=== PATIENT | male | born 1985 | race Two or more races ===

== ENCOUNTER 2019-01-03 04:52 | Inpatient (IN) | payer MEDICAID ==
[~2019-01-03] VITALS: Ht 175.3 cm; Wt 90.7 kg
[2019-01-03] MEDS ORDERED: LORAZEPAM INJ 2 MG/ML VIAL IM ONE (05:00)
--- NOTE | 2019-01-03 05:00 | NUR ---
BIBA FOUND ON THE STREET WANDERING AROUND. PT REFUSED TO ANSWER TO ANY QUESTION INCLUDING HIS NAME. ANXIOUS AT TIMES. PLACED ON A MONITOR,
[2019-01-03] MEDS ORDERED: LORAZEPAM INJ 2 MG/ML VIAL ONE ×3 (05:03→09:41)
--- NOTE | 2019-01-03 05:42 | NUR ---
RE ATTEMPTED TO ASSESS THE PT AND GET SOME INFORMATION. PT ADMITTED ON DRINKING ALCOHOL. DENIED SI OR HI. DENIED DRUG USE OR ANY PAIN OR DISCOMFORT. UNABLE TO STAY STILL IN BED AND STILL REFUSING TO GIVE HIS NAME. REMAINED IN CLOSE MONITORING .
[2019-01-03] MEDS ORDERED: diphenhydrAMINE HCL 50 MG/ML VIAL IM ONE (07:00)
[2019-01-03] MEDS ORDERED: OLANZAPINE 10 MG VIAL IM ONE ×2 (07:00→07:06)
[2019-01-03] MEDS ORDERED: diphenhydrAMINE HCL 50 MG/ML VIAL ONE (07:05)
[2019-01-03] MEDS ORDERED: IV NS 0.9% 1,000 ML BAG IV ONE ×2 (07:30→09:00)
--- NOTE | 2019-01-03 07:38 | NUR ---
GOWNED,ALL BELONGINGS/CONTRABAND REMOVED FROM HER ELYSE, WANDED
--- NOTE | 2019-01-03 07:41 | NUR ---
urine collected and sent to lab
[2019-01-03 07:44] LABS: BASOPHILS % (AUTO) 0.2 % (0.0-2.0); HEMATOCRIT 45 % (39-51); HEMOGLOBIN 14.9 g/dL (13.5-17.5); LYMPHOCYTES # (AUTO) 3.6 /CMM (0.8-4.8); LYMPHOCYTES % (AUTO) 20.6 % (20.0-44.0); MEAN CORPUSCULAR HGB CONC 33 g/dl (31.0-36.0); MEAN CORPUSCULAR VOLUME 89 fL (80-96); MONOCYTES # (AUTO) 2.3 /CMM (0.1-1.30); MONOCYTES % (AUTO) 13.6 % (2.0-12.0); NEUTROPHILS # (AUTO) 11.3 /CMM (1.8-8.9); NEUTROPHILS % (AUTO) 65.6 % (43.0-81.0); PLATELET COUNT (AUTO) 290 /CMM (150-450); RED BLOOD CELL COUNT(AUTO) 5.07 MIL/uL (4.5-6.0); WHITE BLOOD COUNT (AUTO) 17.2 K/uL (4.3-11.0)
[2019-01-03 07:49] LABS: APPEARANCE,URINE CLEAR (CLEAR); BILIRUBIN,URINE 2+ (NEGATIVE); BLOOD, URINE NEGATIVE Ery/uL (NEGATIVE); COLOR,URINE DARK YELLO (YELLOW); KETONES,URINE 1+ (NEGATIVE); LEUKOCYTE ESTERASE ,URINE NEGATIVE (NEGATIVE); NITRITE, URINE POSITIVE (NEGATIVE); PH,URINE 5.5 (5.0-8.0); PROTEIN,URINE 1+ mg/dl (NEGATIVE); UGLUCOSE TRACE mg/dL (NEGATIVE)
[2019-01-03 07:58] LABS: CALCIUM, SERUM 9.7 mg/dL (8.5-10.1); CARBON DIOXIDE 24 mmol/L (21-32); CHLORIDE 104 mmol/L (98-107); CREATININE 2.5 mg/dL (0.6-1.3); GLUCOSE 100 mg/dL (74-106); POTASSIUM 4.2 mmol/L (3.5-5.1); SODIUM SERUM 147 mmol/L (136-145); UREA NITROGEN, BLOOD 39 mg/dL (7-18)
[2019-01-03 08:01] LABS: ALANINE AMINOTRANSFERASE 695 U/L (12-78); ALBUMIN 4.6 g/dL (3.4-5.0); ALKALINE PHOSPHATASE 102 U/L (46-116); ASPARTATE AMINOTRANSFERASE 289 U/L (15-37); BILIRUBIN,DIRECT 0.9 mg/dL (0.0-0.2); BILIRUBIN,TOTAL 2.1 mg/dL (0.2-1.0); TOTAL PROTEIN, SERUM 8.8 g/dL (6.4-8.2)
[2019-01-03 08:02] LABS: ACETAMINOPHEN 0 ug/ml (10-30); ALCOHOL, BLOOD < 3 mg/dL (0-0); SALICYLATE 1.7 mg/dL (2.8-20.0)
[2019-01-03 08:14] LABS: RBC,URINE 0-2 /HPF (0-2); SQUAMOUS EPITHELIAL CELL,UR Few /HPF (None Seen); WBC,URINE 0-2 /HPF (0-3)
[2019-01-03 08:15] LABS: BACTERIA,URINE Moderate /HPF (None Seen)
[2019-01-03] MEDS ORDERED: LORAZEPAM INJ 2 MG/ML VIAL IV ONE ×2 (09:30→10:00)
--- NOTE | 2019-01-03 09:51 | NUR ---
patient still agitated, vital signs recorded. MD ordered another dose of Ativan and administered. Will continue to monitor accordingly.
--- NOTE | 2019-01-03 09:58 | NUR ---
ABOUT EKG... MEDS GIVEN WAITING FOR PT TO RELAX AND NOT MOVE SO MUCH.
--- NOTE | 2019-01-03 10:34 | NUR ---
PANEL ON-CALL PAGED
--- NOTE | 2019-01-03 10:54 | NUR ---
report given to Efrain GILMORE for wander.
[2019-01-03] MEDS ORDERED: ZOLPIDEM TARTRATE 5 MG TABLET PO PRN (11:30)
[2019-01-03] MEDS ORDERED: MAGNESIUM HYDROXIDE 30 ML UDC PO PRN (11:30)
[2019-01-03] MEDS ORDERED: MORPHINE SULFATE INJ 2 MG/ML DISP.SYRIN IV PRN (11:30)
[2019-01-03] MEDS ORDERED: MAG HYDROX/AL HYDROX/SIMETH 30 ML UDC PO PRN (11:30)
[2019-01-03] MEDS ORDERED: LORAZEPAM INJ 2 MG/ML VIAL IV PRN (11:30)
[2019-01-03] MEDS ORDERED: ONDANSETRON HCL/PF 4 MG/2 ML VIAL IVP PRN (11:30)
[2019-01-03] MEDS ORDERED: ACETAMINOPHEN 325 MG TABLET PO PRN (11:30)
[2019-01-03] MEDS ORDERED: Z GUARD REMEDY 2 OZ OINT TP PRN (11:30)
[2019-01-03] MEDS ORDERED: HYDROCODONE/APAP 5/325MG 1 EACH TABLET PO PRN (11:30)
[2019-01-03 12:00] VITALS: BP 113/46
--- NOTE | 2019-01-03 12:00 | NUR ---
RN NOTES RECEIVED REPORT FROM KEELY REGARDING DORETHA LIPSCOMB FOR BORIS.
--- NOTE | 2019-01-03 12:05 | NUR ---
patient transferred to [facility] going to room 314, in no apparent distress noted, accompanied by RN, EMT, and sitter.
--- NOTE | 2019-01-03 12:20 | NUR ---
RN ADMITTING NOTES ADMITTED A 29 Y/O MALE TO UNIT VIA GURNEY AT 12:10 ACCOMPANIED BY 2 HOSPITAL STAFF. PATIENT MENTAL STATUS IS ALTERED, VERY LETHARGIC AND SEDATED. UPON REACH PATIENT BECOMES VERY AGGRESSIVE. PATIENT REFUSED SKIN ASSESSMENT. DR. HORVATH MADE AWARE. PATIENT WITH IV ACCESS ON RA #18, SL. ON ROOM AIR AND TOLERATING WELL. SAFETY MEASURES KEPT IN PLACE, BED IN LOW, LOCKED POSITION WITH SIDE RAILS UP X3. SITTER ON BEDSIDE. CALL LIGHT WITHIN EASY REACH. WILL CONTINUE TO MONITOR.
[2019-01-03] MEDS: IV NS 0.9% 1,000 ML IV PRN ×2 (13:01→18:36)
[2019-01-03 16:00] VITALS: BP 103/57
--- NOTE | 2019-01-03 19:19 | NUR ---
CAREER REPRESENTATIVE CLOSING NOTES PATIENT AWAKE AND RESTING IN BED AT MODERATE HIGH BACK REST POSITION. A/O X 2. ON RA, TOLERATING WELL. IVF ON RA #18 WITH NS INFUSING @ 150ML/HR. PATENT AND INTACT. KEPT SAFETY MEASURES IN PLACE, BED IN LOW LOCKED POSITION, SIDE RAILS UP X3. SITTER AT BEDSIDE. CALL LIGHT WITHIN EASY REACH. ENDORSED TO WEAPONS SYSTEM INSTRUMENT MECHANIC NURSE FOR BORIS.
--- NOTE | 2019-01-03 19:40 | NUR ---
FIELD STAFF OPENING NOTES RECEIVED PT IN BED, AWAKE ALERT ORIENTEDX1, APPEARS DROWSY, BREATHING EVEN AND UNLABORED ON ROOM AIR. SR IN THE 90S, RA #18G WITH NS 150ML/HR. SITTER AT BED SIDE, BED IN LOWEST LOCKED POSITION, CALL LIGHT WITHIN REACH AT ALL TIMES, WILL CONTINUE TO MONITOR FREQUENTLY
[2019-01-04] VITALS: BP 101/70
[2019-01-04 04:00] VITALS: BP 110/62
[2019-01-04] MEDS: IV NS 0.9% 1,000 ML IV PRN (05:51)
--- NOTE | 2019-01-04 06:12 | NUR ---
COMPUTATIONAL MATHEMATICIAN CLOSING NOTES PT REMAINS IN BED,SLEEPING, BREATHING EVEN AND UNLABORED ON ROOM AIR. EARLIER PT STATED HIS NAME WAS DORETHA BECK SR IN THE S, RA #18G WITH NS 150ML/HR. SITTER AT BED SIDE, BED IN LOWEST LOCKED POSITION, CALL LIGHT WITHIN REACH AT ALL TIMES, WILL ENDORSE TO DAY NURSE FOR BORIS
[2019-01-04 07:05] LABS: BASOPHILS # (AUTO) 0.1 /CMM (0.0-0.2); BASOPHILS % (AUTO) 0.8 % (0.0-2.0); EOSINOPHILS % (AUTO) 2.6 % (0.0-6.0); HEMATOCRIT 43 % (39-51); HEMOGLOBIN 14.8 g/dL (13.5-17.5); LYMPHOCYTES # (AUTO) 1.8 /CMM (0.8-4.8); LYMPHOCYTES % (AUTO) 27.8 % (20.0-44.0); MEAN CORPUSCULAR HGB CONC 35 g/dl (31.0-36.0); MEAN CORPUSCULAR VOLUME 88 fL (80-96); MONOCYTES # (AUTO) 0.9 /CMM (0.1-1.30); MONOCYTES % (AUTO) 13.2 % (2.0-12.0); NEUTROPHILS # (AUTO) 3.7 /CMM (1.8-8.9); NEUTROPHILS % (AUTO) 55.6 % (43.0-81.0); PLATELET COUNT (AUTO) 206 /CMM (150-450); RED BLOOD CELL COUNT(AUTO) 4.88 MIL/uL (4.5-6.0); WHITE BLOOD COUNT (AUTO) 6.6 K/uL (4.3-11.0)
[2019-01-04 07:21] LABS: CALCIUM, SERUM 8.4 mg/dL (8.5-10.1); MAGNESIUM 2.5 mg/dL (1.8-2.4); PHOSPHORUS 3.1 mg/dL (2.5-4.9); POTASSIUM 4.2 mmol/L (3.5-5.1)
[2019-01-04 07:29] LABS: ALBUMIN 3.3 g/dL (3.4-5.0); BILIRUBIN,TOTAL 2.1 mg/dL (0.2-1.0); TOTAL PROTEIN, SERUM 7.1 g/dL (6.4-8.2)
[2019-01-04 07:37] LABS: THYROID STIMULATING HORMONE 0.315 uIU/mL (0.358-3.74)
[2019-01-04 07:42] VITALS: BP 96/57
[2019-01-04] MEDS: PANTOPRAZOLE 40 MG VIAL IV SCH (10:02)
--- NOTE | 2019-01-04 12:01 | NUR ---
Social service consult requested by Dr. Bacon for AMS and get personal information such as name etc. Pt. is a 29 year old male who was brought to [facility] via ambulance for wandering around the streets and ingesting methamphetamines. SW met with pt. bedside. Pt. has a sitter bedside. Pt. is alert and oriented x 3. Pt. was able to provide SW his last name Sanjiv and his and Social security number. Pt. stated he was released from longterm yesterday and ingested some methamphetamines. 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 Pt. is from [place]. Pt. was unable to provide his home address at this time. SW had to wake pt. up several times during the assessment. Pt. states he uses methamphetamines and drinks 12 packs of Budweiser beer per day. Pt. smokes two packs of cigarettes per day. Pt. smokes marijuana but states he is trying to quit. SW to follow up with pt. at a later time regarding discharge plan when pt. is less lethargic. MARCO A updated social security number and date of on face sheet and faxed it to admitting at .
[2019-01-04 15:53] VITALS: BP 124/72
[2019-01-04 19:17] VITALS: BP 124/73
[2019-01-04 19:53] LABS: CREATININE, URINE 213.1 MG/DL (30.0-125.0)
[2019-01-04 20:00] VITALS: BP 124/73
--- NOTE | 2019-01-04 20:00 | NUR ---
MS/RN OPENING NOTES RECEIVED PATIENT IN BED, RESTING COMFORTABLY. SITTER AT BEDSIDE TO MONITOR PATIENT PATIENT REPORTED TO BE DANGER TO SELF. SKIN WARM TO TOUCH. RESPIRATIONS EVEN AND UNLABORED. COOPERATIVE IN CARE, VITAL SIGNS WITHIN NORMAL RANGE. OFFERED AND PROVIDED FLUIDS, WILL MONITOR. BED LOCKED, CALL LIGHTS WITHIN REACH, WILL MONITOR.
[2019-01-05] MEDS: IV 1/2NS 1000 ML 1,000 ML IV PRN ×3 (02:09→16:37)
[2019-01-05 06:42] LABS: BASOPHILS % (AUTO) 0.7 % (0.0-2.0); EOSINOPHILS % (AUTO) 4.5 % (0.0-6.0); HEMATOCRIT 39 % (39-51); HEMOGLOBIN 13.6 g/dL (13.5-17.5); LYMPHOCYTES # (AUTO) 1.9 /CMM (0.8-4.8); LYMPHOCYTES % (AUTO) 31.7 % (20.0-44.0); MEAN CORPUSCULAR HGB CONC 35 g/dl (31.0-36.0); MEAN CORPUSCULAR VOLUME 88 fL (80-96); MONOCYTES # (AUTO) 0.7 /CMM (0.1-1.30); MONOCYTES % (AUTO) 11.6 % (2.0-12.0); NEUTROPHILS # (AUTO) 3.1 /CMM (1.8-8.9); NEUTROPHILS % (AUTO) 51.5 % (43.0-81.0); PLATELET COUNT (AUTO) 199 /CMM (150-450); RED BLOOD CELL COUNT(AUTO) 4.49 MIL/uL (4.5-6.0); WHITE BLOOD COUNT (AUTO) 6.1 K/uL (4.3-11.0)
[2019-01-05 06:51] LABS: ALBUMIN 2.7 g/dL (3.4-5.0); BILIRUBIN,DIRECT 0.4 mg/dL (0.0-0.2); BILIRUBIN,TOTAL 0.9 mg/dL (0.2-1.0); CREATININE 0.8 mg/dL (0.6-1.3); MAGNESIUM 1.6 mg/dL (1.8-2.4); PHOSPHORUS 2.8 mg/dL (2.5-4.9); POTASSIUM 3.5 mmol/L (3.5-5.1); TOTAL PROTEIN, SERUM 6.2 g/dL (6.4-8.2)
--- NOTE | 2019-01-05 07:34 | NUR ---
MS RN NOTES PATIENT RECEIVED RESTING INSIDE ROOM. AWAKE, ALERT AND ORIENTED X4, VERBALLY RESPONSIVE AND RESPONDS TO VERBAL AND TACTILE STIMULI. NO ACUTE DISTRESS. DENIES ANY PAIN OR DISCOMFORT AT THIS TIME. SITTER AT BEDSIDE. IV INTACT AND PATENT. SAFETY PRECAUTIONS IN PLACE. WILL CONTINUE TO MONITOR. BED LOCKED AND IN LOW POSITION. BILATERAL UPPER SIDE RAILS UP AND LOCKED. CALL LIGHT WITHIN EASY REACH
--- NOTE | 2019-01-05 07:36 | NUR ---
314-1MS/RN NOTES PATIENT RESTING AND ABLE TO SLEEP WELL, DEIES PAIN. COOPERATIVE TO CARE. BED LOCKED, CALL LIGHTS WITHIN REACH, WILL MONITOR.OFFERED AND PROVIDED FLUIDS.
[2019-01-05 08:00] VITALS: BP 117/75
[2019-01-05] MEDS ORDERED: VALA100026 PO (08:22)
[2019-01-05] MEDS ORDERED: Magnesium 1GM/D5W 100ML PREMIX PIGGYBACK IV ONE (08:30)
[2019-01-05] MEDS: Magnesium 1GM/D5W 100ML PREMIX 100 ML IV SCH ×2 (09:23→11:26)
[2019-01-05] MEDS: PANTOPRAZOLE 40 MG VIAL IV SCH (09:23)
[2019-01-05] MEDS: VALACYCLOVIR HCL 500 MG TABLET PO SCH ×2 (09:23→16:37)
--- NOTE | 2019-01-05 13:42 | NUR ---
Social service consult follow-up conducted by SW to provide substance abuse treatment program referrals. SW reassessment conducted. SW met with pt at bedside. Pt was alert and oriented x4. Pt had a 1 on 1 sitter and a visitor. Pt was receptive to receiving referral information although he states he is only interested in �getting out of here.� Pt states that he lives at [address] [place] [id number]. SW provided the following referrals to pt: [facility] [address] [place] [address]; , [facility] [address] [place] [address]; , and [facility] Directory and health and mental health clinic referrals were also provided. Pt declined further SW services at this time. SW is available if needed.
[2019-01-05 16:00] VITALS: BP 130/72
--- NOTE | 2019-01-05 18:08 | NUR ---
MS RN NOTES PATIENT A/O X 4. VERIFIED WITH PATIENT ALLERGIES. PER PATIENT, HE DOES NOT HAVE ANY ALLERGIES TO MEDICATIONS OR FOOD. UPDATED PATIENT INFORMATION. WILL CONTINUE TO MONITOR
--- NOTE | 2019-01-05 18:28 | NUR ---
MS RN NOTES PATIENT RESTING INSIDE ROOM. AWAKE, ALERT AND ORIENTED, VERBALLY RESPONSIVE AND RESPONDS TO VERBAL AND TACTILE STIMULI. NO ACUTE DISTRESS. PATIENT REPORTS FEELING DISCOMFORT ON IV SITE. NO SWELLING OR REDNESS NOTED ON SITE. IV FLUSHES WELL. OFFERED TO RE-INSERT IV TO A DIFFERENT SITE BUT PATIENT REFUSED. INSISTED THAT HE WANTS TO KEEP HIS CURRENT IV SITE. RISKS AND BENEFITS EXPLAINED BUT TO NO AVAIL. WILL ENDORSE TO INCOMING SHIFT FOR BORIS. BED LOCKED AND IN LOW POSITION. BILATERAL UPPER SIDE RAILS UP AND LOCKED. CALL LIGHT WITHIN EASY REACH
--- NOTE | 2019-01-05 19:30 | NUR ---
MS RN NOTES RECEIVED ON BED A/O X4,BREATHING NORMAL, AT BEDSIDE AND WILL STAY FOR THE NIGHT,WITH CHARGE NURSE PERMISSION.IVF 1/2NS AT 150ML/HR IN PROGRESS VIA IV PUMP,SITE PATENT ON RFA.CALL LIGHT IN REACH,NEEDS ANTICIPATED.
[2019-01-05 20:00] VITALS: BP 123/73
--- NOTE | 2019-01-05 21:00 | NUR ---
MS RN NOTES CLAIMED PAIN ON IV SITE,NOTED SLIGHT REDNESS,NEW SALINE PLACE ON RIGHT WRIST #22,SAME IVF RE STARTED.
--- NOTE | 2019-01-05 22:30 | NUR ---
MS RN NOTES PATIENT VERBALIZED THAT HE NEEDS TO GET OUT OF HERE IN THE MORNING TO SEE HIS PROVISION OFFICER.HE JUST GOT FROM [facility].CHARGE NURSE MADE AWARE.
--- NOTE | 2019-01-06 06:30 | NUR ---
MS RN NOTES ON BED AWAKE,IVF INFUSING,SITE REMAINS PATENT.DENIES DISCOMFORTS,POSSIBLE D/C TODAY,IN NO ACUTE DISTRESS.WILL ENDORSE TO DAY NURSE FOR BORIS.
[2019-01-06 06:48] LABS: BASOPHILS % (AUTO) 0.6 % (0.0-2.0); EOSINOPHILS % (AUTO) 3.9 % (0.0-6.0); HEMATOCRIT 43 % (39-51); HEMOGLOBIN 14.5 g/dL (13.5-17.5); LYMPHOCYTES # (AUTO) 2.7 /CMM (0.8-4.8); LYMPHOCYTES % (AUTO) 50.1 % (20.0-44.0); MEAN CORPUSCULAR HGB CONC 34 g/dl (31.0-36.0); MEAN CORPUSCULAR VOLUME 87 fL (80-96); MONOCYTES % (AUTO) 18.8 % (2.0-12.0); NEUTROPHILS # (AUTO) 1.4 /CMM (1.8-8.9); NEUTROPHILS % (AUTO) 26.6 % (43.0-81.0); PLATELET COUNT (AUTO) 211 /CMM (150-450); RED BLOOD CELL COUNT(AUTO) 4.86 MIL/uL (4.5-6.0); WHITE BLOOD COUNT (AUTO) 5.3 K/uL (4.3-11.0)
[2019-01-06 07:21] LABS: BILIRUBIN,DIRECT 0.3 mg/dL (0.0-0.2); BILIRUBIN,TOTAL 0.6 mg/dL (0.2-1.0); CALCIUM, SERUM 8.3 mg/dL (8.5-10.1); CREATININE 0.9 mg/dL (0.6-1.3); POTASSIUM 3.7 mmol/L (3.5-5.1); TOTAL PROTEIN, SERUM 6.8 g/dL (6.4-8.2)
--- NOTE | 2019-01-06 07:47 | NUR ---
MS RN OPENING NOTES Received Patient awake, watching TV and eating breakfast. A/O x 4. VS stable with no acute distress. Breathing even and unlabored on room air with no respiratory distress. Denies pain. 22g on RIGHT WRIST clean, dry, intact and flushing well with 1/2NS running at 150ml/hr. Safety precautions in place. Bed locked and set to lowest position with side rails x 2 up. All needs rendered at this time. Girlfriend at bedside. Will continue to monitor.
[2019-01-06] MEDS: PANTOPRAZOLE 40 MG VIAL IV SCH (09:11)
--- NOTE | 2019-01-06 09:40 | NUR ---
MS RN NOTES Obtained Informed Consent for Smoking at this time. Explained risks of smoking to Patient. Patient verbalized understanding and states that he wants to continue smoking. Patient accompanied by SNOWBOARD DESIGNER. Will continue to monitor.
[2019-01-06 09:44] LABS: EOSINOPHILS % (MANUAL) 2 % (0-4); LYMPHOCYTES % (MANUAL) 50 % (16-48); MONOCYTES % (MANUAL) 14 % (0-11.0); NEUTROPHILS % (MANUAL) 34 (42-76)
--- NOTE | 2019-01-06 11:00 | NUR ---
MS GILMORE NOTES Patient taken down to RADIOLOGY for EGD/COLONOSCOPY at this time. Addendum: 01/06/19 at 1800 by FAISAL VOGEL RN ERROR-WRONG PATIENT
[2019-01-06 16:00] VITALS: BP 130/76
--- NOTE | 2019-01-06 19:15 | NUR ---
MS RN NOTES RECEIVED PT IN BED AWAKE AND ABLE TO MAKE NEEDS KNOWN WITH FAMILY AT BEDSIDE. PT A/O X4. BREATHING EVEN AND UNLABORED WITH NO S/S OF ACUTE DISTRESS OR SOB NOTED. PT DENIES PAIN AT THIS TIME. PT WITH RWRIST #22G PATENT AND INTACT RUNNING 1/2 NS @150ML/HR. SAFETY MEASURES IN PLACE WITH BED IN LOWEST LOCKED POSITION WITH SIDE RAILS UP X2. CALL LIGHT WITHIN REACH. WILL CONTINUE TO MONITOR.
--- NOTE | 2019-01-06 19:29 | NUR ---
MS RN CLOSING NOTES Patient awake and watching TV in bed. A/O x 4. VS stable with no acute distress. Breathing even and unlabored on room air with no respiratory distress. Denies pain. 22g on RIGHT WRIST clean, dry, intact and flushing well with 1/2NS running at 150ml/hr. Safety precautions in place. Bed locked and set to lowest position with side rails x 2 up. All needs rendered at this time. Will endorse plan of care to oncoming shift.
[2019-01-06 20:00] VITALS: BP 135/94
[2019-01-06] MEDS: IV 1/2NS 1000 ML 1,000 ML IV PRN (23:54)
[2019-01-07] MEDS: IV 1/2NS 1000 ML 1,000 ML IV PRN ×2 (06:43→23:58)
[2019-01-07 06:49] LABS: BASOPHILS % (AUTO) 0.5 % (0.0-2.0); EOSINOPHILS % (AUTO) 3.9 % (0.0-6.0); HEMATOCRIT 44 % (39-51); HEMOGLOBIN 15.2 g/dL (13.5-17.5); LYMPHOCYTES # (AUTO) 3.5 /CMM (0.8-4.8); LYMPHOCYTES % (AUTO) 49.5 % (20.0-44.0); MEAN CORPUSCULAR HGB CONC 35 g/dl (31.0-36.0); MEAN CORPUSCULAR VOLUME 88 fL (80-96); MONOCYTES # (AUTO) 1.1 /CMM (0.1-1.30); MONOCYTES % (AUTO) 15.1 % (2.0-12.0); NEUTROPHILS # (AUTO) 2.2 /CMM (1.8-8.9); PLATELET COUNT (AUTO) 241 /CMM (150-450); RED BLOOD CELL COUNT(AUTO) 5.01 MIL/uL (4.5-6.0)
--- NOTE | 2019-01-07 06:56 | NUR ---
MS RN NOTES PT IN BED ASLEEP BUT EASILY AWOKEN VERBALLY OR BY TOUCH WITH FAMILY AT BEDSIDE. PT A/O X4 AND ABLE TO MAKE NEEDS KNOWN WITH FAMILY AT BEDSIDE. BREATHING EVEN AND UNLABORED WITH NO S/S OF ACUTE DISTRESS OR SOB NOTED THROUGHOUT SHIFT. PT DENIES PAIN AT THIS TIME. PT WITH RWRIST #22G PATENT AND INTACT RUNNING 1/2 NS @150ML/HR. SAFETY MEASURES IN PLACE WITH BED IN LOWEST LOCKED POSITION WITH SIDE RAILS UP X2. CALL LIGHT WITHIN REACH. WILL ENDORSE TO ONCOMING NURSE FOR BORIS.
[2019-01-07 07:09] LABS: BILIRUBIN,DIRECT 0.3 mg/dL (0.0-0.2); BILIRUBIN,TOTAL 0.5 mg/dL (0.2-1.0); CALCIUM, SERUM 8.4 mg/dL (8.5-10.1); CREATININE 0.9 mg/dL (0.6-1.3); MAGNESIUM 1.9 mg/dL (1.8-2.4); PHOSPHORUS 4.3 mg/dL (2.5-4.9); POTASSIUM 3.8 mmol/L (3.5-5.1); TOTAL PROTEIN, SERUM 7.1 g/dL (6.4-8.2)
--- NOTE | 2019-01-07 07:51 | NUR ---
M/S RN OPENING NOTES RECEIVED PATIENT ON BED, A/O X4, RESPONSIVE TO ALL STIMULI AND ABLE TO MAKE NEEDS KNOWN. RESPIRATION EVEN AND NON LABORED WITH NO ACUTE RESPIRATORY DISTRESS. ABDOMEN SOFT AND NON DISTENDED WITH ACTIVE BOWEL SOUNDS. SKIN WARM TO TOUCH AND DRY. DENIES PAIN AND DISCOMFORT. IV SITE AT RIGHT WRIST RUNNING NS AT 150 ML/HR, NO INFILTRATION NOTED.GIRLFRIEND ON BEDSIDE, NOT ABLE TO SLEEP LAST NIGHT AND REQUESTED TO MINIMIZE VISIT. ALL CONCERNS ADDRESSED. CALL LIGHT WITHIN REACH. WILL CONTINUE TO MONITOR CARE.
[2019-01-07 08:00] VITALS: BP 120/75
[2019-01-07] MEDS: PANTOPRAZOLE 40 MG VIAL IV SCH (09:07)
--- NOTE | 2019-01-07 09:30 | NUR ---
M/S RN NOTES PT IVF DISCONNECTED FOR MEALS, STATED HE CAN MOVE EASILY.
--- NOTE | 2019-01-07 09:53 | NUR ---
M/S RN NOTES PT HAS A VISITOR STATED SHE'S A SISTER WITH BELONGINGS CARRIED. RN ENTERED THE ROOM OBSERVED ALL STUFF ON THE FLOOR, LADY WHO SAID THE SISTER IS GONE. PER GIULIANA, SHE'S AN EX- AND ASKED TO THROW STUFF IN THE TRASH. 5 CHIPS, 3 PIE, 3 CHOCOLATES, 1 CHEESE DIP, 1 TAMARIND CANDY STICK, 1 PAIR OF SLIPPER, 3 WHITE TANKS, 6 PAIR OF WHITE SOCKS, 2 BOXERS, 6 HIGHLIGHTER, 2 BOOKS AND 1 SHORTS THROWN IN PRESENCE OF PATIENT AND . TROLLEY CAR OVERHAULER TO CLEAN THE ROOM AND PT/ AGREED. GARY MO NOTIFIED.
--- NOTE | 2019-01-07 10:08 | NUR ---
M/S RN NOTES PT SEEN BY DR. HORVATH. OK TO DC WHEN GI CONSULT CLEAR THE PT.
--- NOTE | 2019-01-07 10:30 | NUR ---
M/S RN NOTES PT IVF REMAINED DISCONNECTED. EXPLAINED REASON OF IVF. STATED HE WILL CALL ME IF I WANTED IT TO BE CONNECTED. ASSURED NURSE WILL BE OUTSIDE IF NEEDED
--- NOTE | 2019-01-07 12:59 | NUR ---
M/S RN NOTES CHANGE IV SITE FROM RIGHT WRIST TO RIGHT AC DUE TO TENDERNESS ON SITE AND LEAKING. PT TOLERATED INSERTION WITH NO COMPLAIN NOTED. IVF TO CONTINUE ORDERED
[2019-01-07 16:00] VITALS: BP 121/65
--- NOTE | 2019-01-07 18:27 | NUR ---
M/S RN NOTES PATIENT SEEN BY YANELIS PICKETT, GI CONSULT. PLAN TO STAY ANOTHER DAY TO MONITOR LABS. IF LABS GO DOWN, PT FOR DC. IF LABS GOES UP, NEED FURTHER TEST. EXPLAINED REASON FOR HIGH RESULTS D/T AMPHETAMINE OVERDOSE THAT STILL EXIST ON LIVER. PT VERBALIZED UNDERSTANDING WITH NO CONCERNS ASKED. ON BEDSIDE
--- NOTE | 2019-01-07 18:45 | NUR ---
M/S RN CLOSING NOTES PATIENT A/O X4, RESPONSIVE TO ALL STIMULI. NO SOB NOTED. NO COMPLAIN OF PAIN. ABD SOFT AND NON DISTENDED, NON TENDER TO PALPATE, CONTINENT B&B. IV SITE AT RIGHT AC GAUGE 22, PATENT IN FLUSHING. ALL CONCERNS ADDRESSED. CALL LIGHT WITHIN REACH. ON BEDSIDE. ENDORSED PT CARE TO NEXT SHIFT.
--- NOTE | 2019-01-07 19:15 | NUR ---
MS RN NOTES RECEIVED PT IN BED AWAKE AND ABLE TO MAKE NEEDS KNOWN WITH FAMILY AT BEDSIDE. PT A/O X4. BREATHING EVEN AND UNLABORED WITH NO S/S OF ACUTE DISTRESS OR SOB NOTED. PT DENIES PAIN AT THIS TIME. PT WITH RIGHT AC #22G PATENT AND INTACT RUNNING 1/2 NS @150ML/HR. SAFETY MEASURES IN PLACE WITH BED IN LOWEST LOCKED POSITION WITH SIDE RAILS UP X2. CALL LIGHT WITHIN REACH. WILL CONTINUE TO MONITOR.
[2019-01-07 20:00] VITALS: BP 148/68
--- NOTE | 2019-01-07 21:12 | NUR ---
MS RN NOTES PT REFUSED IV FLUIDS AT THIS TIME. WILL CONTINUE TO ENCOURAGE PT TO HAVE IV FLUIDS TO BE RUNNING.
--- NOTE | 2019-01-08 00:13 | NUR ---
CHANGED OF PRIMARY NURSE Received patient awake, ambulating independently, friend sitting at patient's bed. Patient's girl friend made aware of hospital visiting hours and hospital bed for patients only. Patient's girlfriend stated she will go home shortly. Patient appears anxious, denies SOB, on RA. Agreed for IVF infusion, previously refused per report. Instruction to use call light for assistance, verbalized understanding.
[2019-01-08] MEDS: IV 1/2NS 1000 ML 1,000 ML IV PRN (05:59)
--- NOTE | 2019-01-08 06:21 | NUR ---
EBND OF SHIFT REPORT Patient in bed, stable oxygen saturation on RA. IVF infusing maintained at 150 ml/hr. Ambulates independently, voiding well. No BM this shift, voiding well. Lab test this morning. D/C when cleared by GI. No acute events overnight. Patient's girlfriend did not go home and stayed with the patient, aware of hospital visiting hours.
[2019-01-08 06:54] LABS: BASOPHILS % (AUTO) 0.4 % (0.0-2.0); EOSINOPHILS % (AUTO) 3.8 % (0.0-6.0); HEMATOCRIT 50 % (39-51); HEMOGLOBIN 16.3 g/dL (13.5-17.5); LYMPHOCYTES # (AUTO) 3.6 /CMM (0.8-4.8); LYMPHOCYTES % (AUTO) 51.1 % (20.0-44.0); MEAN CORPUSCULAR HGB CONC 33 g/dl (31.0-36.0); MEAN CORPUSCULAR VOLUME 92 fL (80-96); MONOCYTES # (AUTO) 0.9 /CMM (0.1-1.30); MONOCYTES % (AUTO) 13.3 % (2.0-12.0); NEUTROPHILS # (AUTO) 2.2 /CMM (1.8-8.9); NEUTROPHILS % (AUTO) 31.4 % (43.0-81.0); PLATELET COUNT (AUTO) 247 /CMM (150-450); RED BLOOD CELL COUNT(AUTO) 5.37 MIL/uL (4.5-6.0); WHITE BLOOD COUNT (AUTO) 7.1 K/uL (4.3-11.0)
[2019-01-08 07:07] LABS: ALBUMIN 3.2 g/dL (3.4-5.0); BILIRUBIN,DIRECT 0.3 mg/dL (0.0-0.2); BILIRUBIN,TOTAL 0.4 mg/dL (0.2-1.0); CALCIUM, SERUM 8.5 mg/dL (8.5-10.1); CREATININE 0.8 mg/dL (0.6-1.3); POTASSIUM 4.2 mmol/L (3.5-5.1); TOTAL PROTEIN, SERUM 7.2 g/dL (6.4-8.2)
--- NOTE | 2019-01-08 07:29 | NUR ---
M/S RN OPENING NOTES RECEIVED PATIENT ON BED, A/O X 4. ASSESSED NO ACUTE RESPIRATORY DISTRESS. ABD SOFT AND NON DISTENDED WITH ACTIVE BOWEL SOUNDS. DENIES PAIN AND DISCOMFORT. SKIN WARM TO TOUCH AND DRY. IV SITE AT RIGHT AC RUNNING 1/2 NS AT 150 ML/HR. UNABLE TO SLEEP LAST NIGHT, ADJUSTED ROOM TEMP FOR PATIENTS COMFORT AND DIMMED LIGHT. ALL CONCERNS ADDRESSED. PLACED CALL LIGHT WITHIN REACH. CONTINUE TO MONITOR CARE.
[2019-01-08] MEDS ORDERED: PANTOPRAZOLE 40 MG TABLET.DR PO SCH (07:30)
[2019-01-08 08:00] VITALS: BP 109/56
[2019-01-08 08:28] LABS: EOSINOPHILS % (MANUAL) 2 % (0-4); LYMPHOCYTES % (MANUAL) 57 % (16-48); MONOCYTES % (MANUAL) 9 % (0-11.0); NEUTROPHILS % (MANUAL) 31 (42-76)
--- NOTE | 2019-01-08 10:30 | NUR ---
M/S RN NOTES PATIENT NO CONCERNS AT THIS TIME. RESTED WELL.
--- NOTE | 2019-01-08 13:30 | NUR ---
M/S RN NOTES ÁLVARO FROM CASE MANAGEMENT SEEN PATIENT FOR DC SUMMARY PLAN.
--- NOTE | 2019-01-08 14:15 | NUR ---
M/S ATHLETIC MONITOR NOTES PATIENT A/O X4, RESPONSIVE TO ALL STIMULI, ABLE TO MAKE NEEDS KNOWN. RESPIRATION EVEN AND NON LABORED WITH NO ACUTE RESPIRATORY DISTRESS, LUNGS CLEARED BILATERALLY. ABDOMEN SOFT AND NON DISTENDED WITH ACTIVE BOWEL SOUNDS. DENIES PAIN AND DISCOMFORT. SKIN REMAINED WARM TO TOUCH,DRY AND INTACT. IV LINE REMOVED, TOLERATED WELL. EXIT CARE GIVEN WITH INSTRUCTIONS. TAP CARD GIVEN REQUESTED FOR TRANSPORTATION TO PATIENT'S MOM'S PLACE AT [address] [place] [address]. GIVEN SET OF CLOTHES AND SLIPPERS BEFORE GOING HOME SINCE NO CLOTHES NOTED IN ROOM, PER PATIENT HE HAS NO VALUABLES WHEN HE WOKE UP AND CANT REMEMBER GOING IN THE HOSPITAL. ALL CONCERNS ADDRESSED. APPRECIATIVE WITH HOSPITALIZATION. ACCOMPANIED BY MECHELLE RODRIGEZ SAFELY TO TRANSPORTATION. PATIENT IN STABLE CONDITION.
== END 2019-01-08 14:30 | disposition home or self-care (01) | DRG 812 ==
LOC: ER 09:38 → MED 10:10 → EDBD 10:10 → TELE 15:08 → MED 01-04 11:08
PROVIDERS: ADMIT Student in an Organized Health Care Education/Training Program; ATTEND Student in an Organized Health Care Education/Training Program
DX: T43.621A Poisoning by amphetamines, accidental (unintentional), initial encounter (principal); N17.0 Acute kidney failure with tubular necrosis; G92 Toxic encephalopathy; M62.82 Rhabdomyolysis; Y92.89 Other specified places as the place of occurrence of the external cause; E87.0 Hyperosmolality and hypernatremia; E86.0 Dehydration; D72.829 Elevated white blood cell count, unspecified; R74.0 Nonspecific elevation of levels of transaminase and lactic acid dehydrogenase [LDH]; B18.2 Chronic viral hepatitis C; B00.1 Herpesviral vesicular dermatitis; K82.9 Disease of gallbladder, unspecified; E80.6 Other disorders of bilirubin metabolism
CPT/HCPCS: 36415; 71045-TC; 76700-TC; 80048-TC; 80061-TC; 80074; 80076-TC; 80305; 81000-TC; 82550-TC; 82570-TC; 83735-TC; 84100-TC; 84300-TC; 84443-TC; 85025-TC; 87081-TC; 87086-TC; 93976-TC; 97116-TC; 97530-TC; C9113; G0378; G0480; J1200; J2060; J3475; J3490; J7030